=== PATIENT | female | born 1950 | race Caucasian/White ===

== ENCOUNTER → 2016-10-22 | Outpatient (CLI) | payer OTHER ==
[~2016-10-22] VITALS: Ht 152.4 cm; Wt 84.0 kg
[~2016-10-22] MED LIST: AMBEREN PO; AMLO-110 PO; B-CO1CAP3 PO; FERR1TAB23 PO; HYDR25TA4 PO; LEVO50TA PO; LISI20TA3 PO; MECL1TAB42 PO; PANT40TA PO; SULI200T4 PO
[2016-10-22 13:53] VITALS: BP 146/72; PULSE 77; Ht 152.4 cm; Wt 84.0 kg
== END | disposition home or self-care (01) ==
LOC: C.NEUR 13:00
PROVIDERS: ATTEND Internal Medicine Pulmonary Disease
DX: G47.33 Obstructive sleep apnea (adult) (pediatric) (principal); I10 Essential (primary) hypertension

== ENCOUNTER → 2016-11-26 | Outpatient (CLI) | payer OTHER ==
[2016-11-26 12:08] LABS: BASO % 0.7 %; BASO ABS # 0.04 K/uL (0-0.2); COMPLETE YES; EOS % 1.8 %; HEMATOCRIT 42.7 % (37-47); IG% 0.2 %; LYMPH % 41.5 %; LYMPH ABS # 2.53 K/uL (1.2-3.4); MEAN CELL VOLUME 97.7 fL (80-100); MEAN CORPUSCULAR HGB CONC 33.7 g/dl (32-36); MEAN PLATELET VOLUME 10.9 fL (7.4-10.4); NEUT % 47.8 %; PLATELET COUNT 246 K/uL (130-400); RED BLOOD COUNT 4.37 M/uL (4.2-5.4); WHITE BLOOD COUNT 6.09 K/uL (4.8-10.8)
[2016-11-26 12:15] LABS: ALT/SGPT 37 U/L (12-78); AST/SGOT 19 U/L (15-37); BLOOD UREA NITROGEN 20 mg/dl (7-18); BUN/CREATININE RATIO 22.8 (10-20); CALCIUM 9.3 mg/dl (8.5-10.1); CARBON DIOXIDE 27 mmol/L (21-32); CHLORIDE 104 mmol/L (98-107); CREATININE 0.89 mg/dl (0.60-1.20); GLUCOSE 91 mg/dl (70-99); POTASSIUM 3.9 mmol/L (3.5-5.1); SODIUM 140 mmol/L (136-145)
[2016-11-26 12:23] LABS: ALB/GLOB RATIO 1.1 (0.9-2); ALKALINE PHOSPHATASE 95 U/L (45-117); FERRITIN 116.2 ng/ml (8.0-388.0); TOTAL IRON BINDING CAPACITY 317 mcg/dl (250-450)
== END | disposition home or self-care (01) ==
LOC: C.LABBFT 07:55
PROVIDERS: ATTEND Family Medicine
DX: D50.9 Iron deficiency anemia, unspecified (principal); I10 Essential (primary) hypertension; E03.9 Hypothyroidism, unspecified

== ENCOUNTER → 2016-12-10 | Outpatient (CLI) | payer OTHER ==
[~2016-12-10] MED LIST changes: -MECL1TAB42 PO
--- NOTE | 2016-12-11 05:52 | SPLIT NIGHT TECHNICIAN REPORT ---
[facility] Split Night Polysomnogram - Mill Tender Warm Up Report Study date: 12/10/2016 Referring Physician: Elaine Phillips PA-C, PA-C Name: OKLIAMUNA Bullock Mill Tender Warm Up: Leidy Ivy [facility]. Date of : 1950 Height: 66 years, Height 5' 0" Sex: Female Weight: 185 lbs Age: 66 BMI: Medications: 36.13 Amlodipine 5 mg, Iron, Levothyroxine 50 MCG, Lisinopril 20 mg, Protonix 40 mg, Sulindac 200 mg, Vitamin B 12 Patient History 66 yr. old female here for a modified split night sleep study if AHI >6. Patient currently uses CPAP but is still experiencing JONATHAN symptoms. Patient had a PSG done December 2015 that showed an AHI of 3. Parameters Monitored NPSG: E1-M2, E2-M1, Fp1-M2, Fp2-M1, F3-M2, F4-M2, F4-M1, C3-M2, C4-M2, C4-M1, O1-M2, O2-M2, O2-M1, T3-M2, T4-M1, P3-M2, P4-M1, CHIN1, CHIN2, HR, EKG, Legs, PFLOW, SNOR, FLOW, CFLOW, Tidal Volume, THOR, ABDO, SpO2, PLTH, CPRESS, ETCO2 Wave, ETCO2, pH SLEEP SUMMARY DATA DIAGNOSTIC TREATMENT Lights Out: 10:37:28 PM 1:27:58 AM Lights On: 1:24:58 AM 5:32:58 AM Total Recording Time (TRT): 167.5 min. 245.0 min. Total Sleep Time (TST): 121.5 min. 206.5 min. NREM Time: 107.0 min. 164.5 min. REM Time: 14.5 min. 42.0 min. Sleep Period Time (SPT): 164.5 min. 240.0 min. Sleep Efficiency (SE): 73 % 84 % Sleep Latency: 3.0 min. 5.0 min. Arousal Index: 19.3 5.5 PAP Treatment Levels: 4, 5, 6, 7, 8 * Optimal Pressure(s) SLEEP STAGING DATA DIAGNOSTIC TREATMENT Duration (min) TST % Duration (min) TST % Stage Wake: 46.0 min. -- 38.5 min. -- WASO: 43.0 min. -- 33.5 min. -- NREM: 107.0 min. 88 % 164.5 min. 80 % Stage N1: 29.5 min. 24 % 13.5 min. 7 % Stage N2: 52.5 min. 43 % 88.5 min. 43 % Stage N3: 25.0 min. 21 % 62.5 min. 30 % REM: 14.5 min. 12 % 42.0 min. 20 % POSITIONAL DATA Event Count Index Event Count Index Supine: 33 15.8 3 0.8 Supine NREM: 16 8.1 1 0.5 Supine REM: 17 70 2 2 Non-Supine: 0 0.0 5 3.7 Non-Supine NREM: 0 0.0 1 0.0 Non-Supine REM: N/A N/A 4 17.8 AROUSAL SUMMARY DATA: Event Count Index Event Count Index Apnea Arousals: 4 4.9 0 0.0 Hypopnea Arousals: 3 1.5 1 0.3 Snore Arousals: 8 4.0 2 0.6 PLM Arousals: 10 4.9 2 0.6 Non-Specific Arousals: 5 2.5 6 1.7 Total Arousals: 39 19.3 19 5.5 MYOCLONUS (PLM) Event Count Index Event Count Index PLM: 26 12.8 4 1.2 PLM AROUSAL: 10 4.9 2 0.6 PLM W/O AROUSAL 26 12.8 2 0.6 PLM W/RESP EVENT 3 0.0 0 0.0 MYOCLONUS (PLM) Event Count Index Event Count Index LM: 7 13.8 31 9.0 LM AROUSAL: 7 3.5 6 1.7 LM W/O AROUSAL LM W/RESP EVENT LM NON SPECIFIC 27 13.3 25 7.3 HEART RATE DATA DIAGNOSTIC TREATMENT Sleep (bpm): 72 66 REM (bpm): 92 92 NREM (bpm): 93 92 Tachycardia Count: 0 0 Tachycardia Duration: 0.00 0 Bradycardia Count: 0 0 Bradycardia Duration: 0.00 0 DIAGNOSTIC PORTION TREATMENT PORTION RESPIRATORY DATA Event Count Index Event Count Index AHI: -- 15.3 -- 1.7 RDI: -- 16.3 -- 2 Obstructive Apnea: 10 4.9 0 0.0 Central Apnea: 0 0.0 0 0.0 Mixed Apnea: 0 0.0 0 0.0 Hypopnea: 21 10.4 6 1.7 RERA: 2 1.0 2 0.6 Total Apneas: 10 4.9 0 0.0 RESPIRATORY DATA REM NREM SLEEP REM NREM SLEEP Supine Position: Obstructive Apneas: 1 9 10 0 0 0 Central Apneas: 0 0 0 0 0 0 Mixed Apneas: 0 0 0 0 0 0 Hypopneas: 16 5 21 1 1 2 RERA 0 2 2 1 0 1 Total Supine Events: 17 16 33 2 1 3 Supine AHI: 70 8.1 15.8 2 0.5 0.8 Supine RDI: 70.3 9.3 16.8 4.2 0.5 1.3 REM NREM SLEEP REM NREM SLEEP Non-Supine Position: Obstructive Apneas: N/A 0 0 0 0 0 Central Apneas: N/A 0 0 0 0 0 Mixed Apneas: N/A 0 0 0 0 0 Hypopneas: N/A 0 0 4 0 4 RERA N/A 0 0 0 1 1 Total Supine Events: N/A 0 0 4 1 5 Supine AHI: N/A 0.0 0.0 17.8 0.0 3.7 Supine RDI: N/A 0.0 0.0 17.8 1.2 4.7 OXYGEN DESTAURATION DATA: Event Count Index Event Count Index REM Desaturations: 17 70.3 5 7.1 NREM Desaturations: 7 3.9 2 0.7 SNORE DATA DIAGNOSTIC TREATMENT Snore Time: 17.0 1:32:58 AM Snore TST%: 8 11 Snore Arousal Count: 8 2 Snore Arousal Index: 4.0 0.6 Desaturation Event Summary: Minimum %SpO2 Event Count Mean/Min/Max Duration(sec.) Desaturation Index % Time In Bed > 90 37 26.2 / 9.0 / 60.0 6.2 88.9 86 - 90 2 13.1 / 12.8 / 13.5 2.7 11.0 81 - 85 0 N/A 0.0 0.1 76 - 80 0 N/A 0.0 0.0 71 - 75 0 N/A 0.0 0.0 66 - 70 0 N/A 0.0 0.0 61 - 65 0 N/A 0.0 0.0 56 - 60 0 N/A 0.0 0.0 51 - 55 0 N/A 0.0 0.0 < 50 0 N/A 0.0 0.0 OXYGEN SATURATION DATA DIAGNOSTIC TREATMENT SpO2 Mean Sleep: 93 % 92 % SpO2 Mean REM: 92 % 92 % SpO2 Mean NREM: 93 % 92 % SpO2 Minimum Sleep: 82 % 88 % SpO2 Minimum REM: 82 % 88 % SpO2 Minimum NREM: 86 % 88 % Time Below 90% (TST): 4.5 1.7 Time Below 88% (TST): 1.6 0.0 Total REM NREM Awake <50% 0.0 min. 0.0 min. 0.0 min. 0.0 min. 51 - 60% 0.0 min. 0.0 min. 0.0 min. 0.0 min. 61 - 70% 0.0 min. 0.0 min. 0.0 min. 0.0 min. 71 - 80% 0.0 min. 0.0 min. 0.0 min. 0.0 min. 81 - 90% 45.0 min. 7.3 min. 34.6 min. 3.0 min. 91 - 100% 359.1 min. 49.2 min. 236.9 min. 73.1 min. Average 92 92 92 93 Minimum SpO2 81 82 86 81 Desaturation Event Index 5.5 23.4 2.0 5.0 # Desat. Events below 89% 13 10 3 N/A Time(%) with Saturation below 89% 0.6 0.5 0.1 0.0 Time(min.) with Saturation below 89% 2.6 2.1 0.5 0.0 Recording Mill Tender Warm Up Comments: Mrs. Martel slept in the right, left, and supine positions. No cardiac arrhythmia. PLMs noted. No bruxism noted. Snoring was noted and scored as a 4 on a scale of 0 through 5. (0=no snoring, 5=snoring loud enough to be heard through a closed door or down the lee way) At 1:27 am, Mrs. Martel met specific Split-Night criteria during the diagnostic portion of this study. CPAP was initiated at +4 CMH2O room air and up-titrated to an optimal level of + 8 CMH2O No Cflex, which nearly eliminated all respiratory events and snoring. A ResMed P10, was used during titration. Mrs. Martel awoke to use the restroom two during the night. Mrs. Martel stated, I did not sleep as well as I do when I am in my own bed. The final report will be interpreted and signed by a sleep physician. The completed physician report will then be placed in the patient medical record. Therapy Event: Therapy (cm H20) 0 4 5 6 7 8 Total Time at Pressure (min.) 167.5 46.1 58.7 22.9 28.3 88.9 TST at Pressure (min.) 121.5 22.6 47.7 22.9 27.8 85.4 # Periods 1 1 1 1 1 1 Sleep Onset (min.) 3.0 5.0 0.0 0.0 0.0 0.0 REM Onset (min.) 88.0 N/A 28.4 N/A N/A 24.9 Sleep Efficiency % 72 49 81 100 98 96 Wakefulness (%) 27.5 50.9 18.7 0.0 1.8 3.9 Wakefulness (min.) 46.0 23.5 11.0 0.0 0.5 3.5 NREM 1 (%) 17.6 15.2 2.6 2.2 0.0 5.1 NREM 1 (min.) 29.5 7.0 1.5 0.5 0.0 4.5 NREM 2 (%) 31.3 30.3 11.7 97.8 39.6 38.2 NREM 2 (min.) 52.5 14.0 6.9 22.4 11.2 34.0 NREM 3 (%) 14.9 3.5 44.0 0.0 58.6 20.7 NREM 3 (min.) 25.0 1.6 25.9 0.0 16.6 18.4 REM (%) 8.7 0.0 23.0 0.0 0.0 32.0 REM (min.) 14.5 0.0 13.5 0.0 0.0 28.5 # Arousals 39 5 3 4 1 6 Arousal Index 19.3 13.3 3.8 10.5 2.2 4.2 # Snore 662 102 209 121 210 327 Snore Index 326.9 270.4 262.8 316.6 453.4 229.7 AHI 15.3 0.0 5.0 2.6 0.0 0.7 AHI Supine 15.8 N/A 0.0 2.6 0.0 0.7 AHI Non-Supine 0.0 0.0 5.7 N/A N/A N/A NREM AHI 7.9 0.0 0.0 2.6 0.0 0.0 REM AHI 70.3 N/A 17.8 N/A N/A 2.1 RDI 16.3 2.7 5.0 2.6 0.0 1.4 # Obstructive 10 0 0 0 0 0 # Central Ap 0 0 0 0 0 0 # Mixed 0 0 0 0 0 0 # Hypopneas 21 0 4 1 0 1 RERAS 2 1 0 0 0 1 Total Respiratory Events 33 1 4 1 0 2 Time Below SpO2 89.00% (min.) 2.3 0.0 0.1 0.0 0.0 0.2 Mean NREM SpO2 (%) 93 93 92 92 91 91 Mean REM SpO2 (%) 92 N/A 92 N/A N/A 92 Mean Sleep SpO2 (%) 93 93 92 92 91 91 Min NREM SpO2 (%) 86 89 91 90 90 88 Min REM SpO2 (%) 82 N/A 88 N/A N/A 88 Position Supine (min.) 117.8 0.0 5.9 22.9 27.8 85.4 Position Non-supine (min.) 3.7 22.6 41.9 0.0 0.0 0.0 LM Index Sleep 26.7 18.6 11.3 18.3 4.3 7.0 LM Index NREM 24.7 18.6 10.5 18.3 4.3 5.3 LM Index REM 41.4 N/A 13.3 N/A N/A 10.5 Mean Heart Rate (bpm) 72 69 69 63 65 66 Min Heart Rate (bpm) 59 64 57 57 60 59
--- NOTE | 2016-12-13 07:50 | POLYSOMNOGRAPH REPORT ---
DATE OF STUDY: 12/10/2016. REFERRING PHYSICIAN: Dr. Keyshawn Estrada. CLINICAL DATA: The patient is a 66-year-old female with a BMI of 36.13. She has a history of sleep apnea dating back to 2000. She has been wearing CPAP for many years. Her complaints are those of morning headache, snoring with her mask on, and not feeling well rested. The [place] Sleepiness Scale Score is 12. She had a diagnostic PSG on 01/02/2016 that showed an AHI of only 3. She is referred back for a split sleep study. SLEEP ARCHITECTURE: During the diagnostic portion of the study, the sleep period time was 164.5 minutes. The total sleep time was 121.5 minutes. Sleep efficiency was moderately reduced to 73%. Sleep latency was normal at 3.0 minutes. The arousal index was 19.3. Sleep consisted of stage N1 24%, stage N2 43%, stage N3 21%, and stage REM 12%. During the therapeutic portion of the study, the patient was treated with nasal CPAP. The sleep period time was 240.0 minutes. The total sleep time was 206.5 minutes. The sleep efficiency was mildly reduced to 84%. The sleep latency was 5 minutes. The arousal index was 5.5. Sleep consisted of stage N1 7%, stage N2 43%, stage N3 30%, and stage REM 20%. AROUSAL DATA: During the diagnostic portion of the study, the patient had 39 arousals including 4 apnea arousals, 3 hypopnea arousals, 8 snoring arousals, 10 PLM arousals, and 5 nonspecific arousals. The arousal index was 19.3. During the therapeutic portion of the study, the patient had a total of 19 arousals including 1 hypopnea arousal, 2 snoring arousals, 2 PLM arousals, and 6 nonspecific arousals. The arousal index was 5.5. PLM DATA: During the diagnostic portion of the study the patient had a total of 26 periodic limb movements for an index of 12.8. The PLM arousal index was 4.9. During the therapeutic portion of the study the patient had a total of only 4 PLMs for an index of 1.2. EKG: The cardiac rhythm was normal sinus. The cardiac rates ranged from 66 to 93 beats per minute. No arrhythmias were noted. RESPIRATORY DATA: During the diagnostic portion of the study, the patient had a total of 31 respiratory events including 10 obstructive apneas and 21 hypopneas. The 4% desaturation rule was utilized to score hypopneas. The apnea hypopnea index was mildly elevated at 15.3. During the therapeutic portion of the study, she was treated with nasal CPAP. She had a total of 6 respiratory events, all hypopneas. The apnea hypopnea index was only 1.7. At the final pressure of 8 cm, the apnea-hypopnea index was only 0.7. She did have a total of 88.9 minutes at the final pressure of 8 cm. OXIMETRY DATA: During the diagnostic portion of the study. The mean saturation was 93%. The minimum saturation was 82%. There was a total of 1.6 minutes with saturations less than 88%. During the therapeutic portion of the study, the mean saturation was 92%. The minimum saturation was 88%. There were 0 minutes less than 88%. SERVICE DOG TRAINER'S COMMENTS: Mrs. Martel slept in the right, left, and supine positions. No cardiac arrhythmia was noted. PLMs were noted. No bruxism noted. Snoring was noted and scored as a 4 on a scale of 0 through 5. At 1:27 a.m. Mrs. Martel met specific split night criteria during the diagnostic portion of the study. CPAP was initiated at 4 cm of water and titrated up to an optimum level of 8 cm. This resulted in near elimination of all respiratory events and scoring. A ResMed P10 mask was used. IMPRESSION: Obstructive sleep apnea -- resolved with nasal CPAP at 8 cm. COMMENTS AND RECOMMENDATIONS: This study documented that the patient clearly has moderate sleep apnea. This was well treated with a CPAP of 8 cm. She had almost no events at the final pressure. Her oxygenation was improved. The sleep architecture was improved with increase stage N3 and stage REM during the CPAP titration. RECOMMENDATIONS: 1. It is advised that her CPAP be set at 8 cm. 2. During this study, a ResMed P10 mask was utilized. If she needs a new mask this one would be recommended or mask of choice as per patient's preference. 3. The patient should be advised to avoid sleeping in the supine position as there typically is less apnea when supine. 4. A weight reduction program as advised in light of the elevation of body mass index of 36.13. 5. Followup is advised between day 31 and day 90. [facility]
== END | disposition home or self-care (01) ==
LOC: C.NEUR 21:00
PROVIDERS: ATTEND Physician Assistant
DX: G47.33 Obstructive sleep apnea (adult) (pediatric) (principal)

== ENCOUNTER → 2017-01-08 | Outpatient (CLI) | payer OTHER ==
[~2017-01-08] VITALS: Ht 152.4 cm; Wt 83.2 kg
[2017-01-08 16:43] VITALS: BP 130/71; PULSE 86; Ht 152.4 cm; Wt 83.2 kg
== END | disposition home or self-care (01) ==
LOC: C.NEUR 15:12
PROVIDERS: ATTEND Physician Assistant Medical
DX: G47.33 Obstructive sleep apnea (adult) (pediatric) (principal)

== ENCOUNTER → 2017-03-25 | Outpatient (CLI) | payer OTHER ==
--- NOTE | 2017-03-25 12:28 | MAMMOGRAPHY REPORT ---
BILATERAL DIGITAL SCREENING MAMMOGRAM WITH CAD: 03/25/2017 CLINICAL HISTORY: Routine screening. Patient has no complaints. TECHNIQUE: Bilateral CC and MLO views were obtained. Current study was also evaluated with a Compute r Aided Detection (CAD) system. COMPARISON: Comparison is made to exams dated: 03/20/2016 mammogram, 03/16/2014 mammogram, 03/17/2015 ma mmogram, 02/19/2012 mammogram - [facility], 02/03/2009, and 03/06/2004 mammogram - [facility]. BREAST COMPOSITION: There are scattered areas of fibroglandular density in both breasts. FINDINGS: Linear scar markers overlie the upper outer quadrant of each breast. There is stable asymm etry in the right upper outer quadrant, which appears similar dating back to at least 2008, therefore likely benign. There are scattered benign rounded calcifications in the breasts. No new suspicious mass, architectural distortion or cluster of microcalcifications is seen. IMPRESSION: ACR BI-RADS CATEGORY 1: NEGATIVE There is no mammographic evidence of malignancy. A 1 year screening mammogram is recommended. The pa tient will receive written notification of the results. Approximately 10% of breast cancers are not detected with mammography. A negative mammographic report should not delay biopsy if a clinically suggestive mass is present. Christine Shah M.D. ay/:03/25/2017 12:20:40 Senior Hr Business Partner: Shae Wheatley, [facility] letter sent: Normal 1/2 BI-RADS Code: ACR BI-RADS Category 1: Negative
== END | disposition home or self-care (01) ==
LOC: C.MAMM 10:44
PROVIDERS: ATTEND Obstetrics & Gynecology
DX: Z12.31 Encounter for screening mammogram for malignant neoplasm of breast (principal)

== ENCOUNTER → 2017-04-23 | Outpatient (CLI) | payer OTHER ==
[~2017-04-23] VITALS: Ht 152.4 cm; Wt 78.5 kg
[2017-04-23 12:32] VITALS: BP 128/76; PULSE 72; Ht 152.4 cm; Wt 78.5 kg
== END | disposition home or self-care (01) ==
LOC: C.NEUR 12:12
PROVIDERS: ATTEND Physician Assistant Medical
DX: G47.33 Obstructive sleep apnea (adult) (pediatric) (principal); I10 Essential (primary) hypertension

== ENCOUNTER → 2017-06-05 | Outpatient (CLI) | payer OTHER ==
[2017-06-05 12:29] LABS: BASO % 0.8 %; BASO ABS # 0.05 K/uL (0-0.2); COMPLETE YES; EOS % 1.8 %; HEMATOCRIT 41.9 % (37-47); IG% 0.5 %; LYMPH % 34.4 %; LYMPH ABS # 2.29 K/uL (1.2-3.4); MEAN CELL VOLUME 97.4 fL (80-100); MEAN CORPUSCULAR HEMOGLOBIN 32.8 pg (25-34); MEAN CORPUSCULAR HGB CONC 33.7 g/dl (32-36); MEAN PLATELET VOLUME 10.8 fL (7.4-10.4); MONO % 7.5 %; PLATELET COUNT 264 K/uL (130-400); WHITE BLOOD COUNT 6.65 K/uL (4.8-10.8)
[2017-06-05 12:46] LABS: ALT/SGPT 29 U/L (12-78); AST/SGOT 18 U/L (15-37); BLOOD UREA NITROGEN 31 mg/dl (7-18); BUN/CREATININE RATIO 34.7 (10-20); CALCIUM 9.5 mg/dl (8.5-10.1); CARBON DIOXIDE 24 mmol/L (21-32); CHLORIDE 108 mmol/L (98-107); CHOLESTEROL 218 mg/dl (0-200); CREATININE 0.89 mg/dl (0.60-1.20); GLUCOSE 99 mg/dl (70-99); POTASSIUM 4.5 mmol/L (3.5-5.1); SODIUM 141 mmol/L (136-145); TRIGLYCERIDES 167 mg/dl (0-150); VERY LOW DENSITY LIPOPROT CALC 33 mg/dl
[2017-06-05 12:55] LABS: ALB/GLOB RATIO 1.1 (0.9-2); ALKALINE PHOSPHATASE 89 U/L (45-117); CHOLESTEROL/HDL RATIO 4.4; FERRITIN 168.7 ng/ml (8.0-388.0); HDL CHOLESTEROL 50 mg/dl; LDL CHOLESTEROL CALCULATED 135 mg/dl; TOTAL IRON BINDING CAPACITY 284 mcg/dl (250-450)
== END | disposition home or self-care (01) ==
LOC: C.LABBFT 09:35
PROVIDERS: ATTEND Internal Medicine
DX: I10 Essential (primary) hypertension (principal); D50.9 Iron deficiency anemia, unspecified; E78.5 Hyperlipidemia, unspecified; E03.9 Hypothyroidism, unspecified

== ENCOUNTER → 2017-07-10 | Outpatient (CLI) | payer OTHER ==
[2017-07-10 17:13] LABS: BLOOD UREA NITROGEN 18 mg/dl (7-18)
== END | disposition home or self-care (01) ==
LOC: C.LABBFT 13:42
PROVIDERS: ATTEND Physician Assistant
DX: H93.19 Tinnitus, unspecified ear (principal); H90.42 Sensorineural hearing loss, unilateral, left ear, with unrestricted hearing on the contralateral side

== ENCOUNTER → 2017-07-25 | Outpatient (CLI) | payer OTHER | END | disposition home or self-care (01) | LOC: C.MAMM 10:13 | PROVIDERS: ATTEND Internal Medicine | DX: Z00.00 Encounter for general adult medical examination without abnormal findings (principal); Z13.820 Encounter for screening for osteoporosis; M85.88 Other specified disorders of bone density and structure, other site ==

== ENCOUNTER → 2017-10-18 | Outpatient (CLI) | payer OTHER ==
[~2017-10-18] VITALS: Ht 152.4 cm; Wt 73.3 kg
[2017-10-18 12:50] VITALS: BP 136/79; PULSE 83; Ht 152.4 cm; Wt 73.3 kg
== END | disposition home or self-care (01) ==
LOC: C.NEUR 11:55
PROVIDERS: ATTEND Internal Medicine Pulmonary Disease
DX: G47.33 Obstructive sleep apnea (adult) (pediatric) (principal); I10 Essential (primary) hypertension; E78.5 Hyperlipidemia, unspecified; E03.9 Hypothyroidism, unspecified; Z82.49 Family history of ischemic heart disease and other diseases of the circulatory system; Z80.8 Family history of malignant neoplasm of other organs or systems

== ENCOUNTER → 2017-12-17 | Outpatient (CLI) | payer OTHER ==
[2017-12-17 12:43] LABS: HEMATOCRIT 40.7 % (37-47); MEAN CELL VOLUME 98.1 fL (80-100); MEAN CORPUSCULAR HEMOGLOBIN 33.7 pg (25-34); MEAN CORPUSCULAR HGB CONC 34.4 g/dl (32-36); MEAN PLATELET VOLUME 10.9 fL (7.4-10.4); PLATELET COUNT 244 K/uL (130-400); RED CELL DISTRIBUTION WIDTH CV 13.5 % (11.5-14.5); RED CELL DISTRIBUTION WIDTH SD 48.3 fL (36.4-46.3); WHITE BLOOD COUNT 5.23 K/uL (4.8-10.8)
[2017-12-17 12:47] LABS: BASO % 0.8 %; BASO ABS # 0.04 K/uL (0-0.2); EOS % 2.1 %; EOS ABS # 0.11 K/uL (0-0.5); IG# 0.02 K/uL (0.00-0.02); LYMPH % 37.1 %; LYMPH ABS # 1.94 K/uL (1.2-3.4); MONO % 6.1 %; MONO ABS # 0.32 K/uL (0.11-0.59); NEUT % 53.5 %
[2017-12-17 12:55] LABS: BLOOD UREA NITROGEN 26 mg/dl (7-18); CREATININE 0.76 mg/dl (0.60-1.20); GLUCOSE 86 mg/dl (70-99)
[2017-12-17 12:56] LABS: ALBUMIN 3.9 gm/dl (3.4-5.0); ALT/SGPT 26 U/L (12-78); AST/SGOT 17 U/L (15-37); CALCIUM 9.2 mg/dl (8.5-10.1); CARBON DIOXIDE 29 mmol/L (21-32); CHOLESTEROL 209 mg/dl (0-200); POTASSIUM 3.9 mmol/L (3.5-5.1); SODIUM 141 mmol/L (136-145)
[2017-12-17 13:05] LABS: ALKALINE PHOSPHATASE 90 U/L (45-117); LDL CHOLESTEROL CALCULATED 127 mg/dl; TOTAL PROTEIN 7.5 gm/dl (6.4-8.2); TRANSFERRIN 252 mg/dl (200-360)
== END | disposition home or self-care (01) ==
LOC: C.LABBFT 09:15
PROVIDERS: ATTEND Internal Medicine
DX: I10 Essential (primary) hypertension (principal); E78.5 Hyperlipidemia, unspecified; E03.9 Hypothyroidism, unspecified; D50.9 Iron deficiency anemia, unspecified

== ENCOUNTER → 2018-03-27 | Outpatient (CLI) | payer OTHER ==
[~2018-03-27] MED LIST changes: -AMLO-110 PO; +AMLO5TAB3 PO
--- NOTE | 2018-03-27 15:12 | MAMMOGRAPHY REPORT ---
BILATERAL DIGITAL SCREENING MAMMOGRAM TOMOSYNTHESIS WITH CAD: 03/27/2018 CLINICAL HISTORY: Routine screening. Patient has no complaints. TECHNIQUE: The study was acquired using full field digital technology and interpreted from soft copy. Breast tomosynthesis in addition to standard 2D mammography was performed. Current study was also ev aluated with a Computer Aided Detection (CAD) system. COMPARISON: Comparison is made to exams dated: 03/25/2017 mammogram, 03/20/2016 mammogram, 03/17/2015 nish mogram, 03/16/2014 mammogram, and 02/19/2012 mammogram - [facility]. BREAST COMPOSITION: There are scattered areas of fibroglandular density in both breasts. FINDINGS: No suspicious masses, calcifications, or areas of architectural distortion are noted in either breast . There has been no significant interval change compared to prior exams. Bilateral benign-appearing calcifications are not significantly changed. IMPRESSION: ACR BI-RADS CATEGORY 2: BENIGN There is no mammographic evidence of malignancy. A 1 year screening mammogram is recommended.( 019) The patient will receive written notification of the results. Some breast cancers are not detected with mammography. A negative mammographic report should not rajwinder y biopsy if a clinically suggestive mass is present. Ashley Hernandez M.D. ah/:03/27/2018 12:04:24 Slag Expander: RT Lyly(R)(M), [facility] letter sent: Normal 1/2 BI-RADS Code: ACR BI-RADS Category 2: Benign
== END | disposition home or self-care (01) ==
LOC: C.MAMM 10:48
PROVIDERS: ATTEND Obstetrics & Gynecology
DX: Z12.31 Encounter for screening mammogram for malignant neoplasm of breast (principal)

== ENCOUNTER 2018-10-02 04:49 | Inpatient (IN) ==
--- NOTE | 2018-09-05 12:15 | PAT Medication Instructions ---
Medication Instructions Date of Service September 05, 2018 Home Medications amlodipine [Norvasc] 5 mg PO QDD ascorbic acid (vitamin C) [Vitamin 1 g PO QAM calcium phosphate-vitamin D3 1 tab PO DAILY ferrous sulfate [Iron (ferrous 325 mg PO DAILY ketorolac (PF) 1 drp OPHTHALMIC (EYE) DAILY levothyroxine 50 mcg PO QAM lisinopril 20 mg PO BID pantoprazole [Protonix] 40 mg PO QAM sulindac 200 mg PO QAM vitamin B complex 1 cap PO QAM Continue as directed ketorolac (PF) 1 drp OPHTHALMIC (EYE) DAILY ASK your surgeon for instructions sulindac 200 mg PO QAM DO NOT take the morning of surgery ascorbic acid (vitamin C) [Vitamin 1 g PO QAM calcium phosphate-vitamin D3 1 tab PO DAILY ferrous sulfate [Iron (ferrous 325 mg PO DAILY lisinopril 20 mg PO BID vitamin B complex 1 cap PO QAM Take morning of surgery With a small sip of water, OTHERWISE NOTHING TO EAT OR DRINK AFTER MIDNIGHT: levothyroxine 50 mcg PO QAM pantoprazole [Protonix] 40 mg PO QAM Take evening before surgery amlodipine [Norvasc] 5 mg PO QDD lisinopril 20 mg PO BID Other Notes If you have any questions please call us at [phone] or [phone] or [phone] or [phone]
--- NOTE | 2018-09-05 12:49 | Anesthesiology Consultation ---
Date of Service September 05, 2018 Assessment & Plan (1) Encounter for pre-operative examination: Chart Review Chart Review: Acceptable Risk for Surgery and Patient seen in Pre Admission Testing Teaching & Discussion Pre-Anesthesia Teaching/Discussion Notes: Instructed NPO after midnight before surgery,except medications with 15 cc of water. Medication instructions provided according to the PAT guidelines. History Surgery Operation Date: 10/02/18 12:25 Proposed Procedures p Left Reversed Total Shoulder Arthroplasty - London Sanders MD Height/Weight Height: 5 ft Weight: 76.7 kg Allergies Allergy/AdvReac Type Severity Reaction Status Date / Time oxycodone Allergy Unknown HIVES Verified 09/01/18 10:55 Penicillins Allergy Unknown HIVES Verified 09/01/18 10:55 Medications Home Medications Medication Instructions Recorded Confirmed Last Taken amlodipine [Norvasc] 5 mg PO QDD 09/01/18 09/01/18 Unknown ascorbic acid (vitamin C) [Vitamin 1 g PO QAM 09/01/18 09/01/18 Unknown C] calcium phosphate-vitamin D3 1 tab PO DAILY 09/01/18 09/01/18 Unknown [Citracal + D3 (calcium phos)] ferrous sulfate [Iron (ferrous 325 mg PO DAILY 09/01/18 09/01/18 Unknown sulfate)] ketorolac (PF) 1 drp OPHTHALMIC (EYE) DAILY 09/01/18 09/01/18 Unknown levothyroxine 50 mcg PO QAM 09/01/18 09/01/18 Unknown lisinopril 20 mg PO BID 09/01/18 09/01/18 Unknown pantoprazole [Protonix] 40 mg PO QAM 09/01/18 09/01/18 Unknown sulindac 200 mg PO QAM 09/01/18 09/01/18 Unknown vitamin B complex 1 cap PO QAM 09/01/18 09/01/18 Unknown Past Medical History Medical History Acid reflux CONTROLLED Arthritis Chronic back pain HX HERNIATED DISC (LOWER) Hiatal hernia SMALL PER CXR History of blood transfusion S/P 2/2 TRAUMA WITH INSTRUMENTATION DELIVERY History of valvular heart 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, MILD MR , MODERATE TR Hypertension Hypothyroidism Mild pulmonary hypertension Obesity Sleep apnea CPAP Past Family History Family History Mother Family history of uterine cancer Father Family history of skin cancer Past Surgical History Surgical History History of arthroscopy of left shoulder History of arthroscopy of right shoulder History of bilateral cataract extraction History of bunionectomy & HAMMER TOE LEFT History of colonoscopy History of eye surgery RETINA HORSESHOE TEAR WITHOUT DETACHMENT/RIGHT History of hemorrhoidectomy History of hysterectomy History of lumpectomy of both breasts History of total knee arthroplasty LEFT (X3 TOTAL PROCEDURES FOR) RIGHT (X2 TOTAL PROCEDURES FOR) Past Anesthesia History Other Patient states "gagging" with anesthesia extubation x 1 episode many years ago ( patient unsure which surgery this was with/when/where). No issues with all other surgeries per patient. Father with similar "gagging" upon anesthesia emergence. History of PONV No Motion Sickness Screening History of Motion Sickness: No Social History Smoking Status: Former smoker tobacco type: cigarettes Smoking cigarettes per day: QUIT SEVERAL YEARS AGO Do You Dip or Chew Tobacco: No Hx Alcohol Use: Yes alcohol intake frequency: holidays/special occasions only Hx Substance Use: No substance use type: does not use Exercise / Class Metabolic Activity III < 4 Walking/Shop/Light housework Review of Systems Reflux controlled. Patient denies chest pain, shortness of breath, cough, wheezing, palpitations. Physical Exam Vital Signs VITALS BP 134/77 P 74 TEMP 98.1 SP02 100%RA RESP 18 Full neck and c-spine range of motion. Full TMJ range of motion. TMD 3 finger breaths Mallampati Score 2 Dentition: intact, caps on molars Lungs: clear throughout to auscultation Cardiac: regular rate and rhythm, no murmurs noted Spine: normal Carotid arteries: negative bruit Extremities: no edema Testing Electrocardiogram Date: 09/05/18 SR with 1st degree AVB at 66bpm. Chest X-Ray Date: 09/05/18 Findings: + NAD Small hiatal hernia Echocardiogram Date: 10/11/15 LVEF 60%. No RWMA. Basal asymmetric hypertrophy of the elderly. Grade I DD. Moderate calcification of MV annulus restricting posterior MV leaflet. Mild MR. Moderate TR. Mild pulmonary HTN. Laboratory Results 09/05/18 12:56 09/05/18 12:56 Blood Type A Positive 09/05/18 12:56 Antibody Screen NEGATIVE 09/05/18 12:56 PT 10.5 Seconds (9.0-12.0) 09/05/18 12:56 INR 1.0 (0.9-1.1) 09/05/18 12:56 APTT 25.9 Seconds (21.0-31.0) 09/05/18 12:56 Hemoglobin A1c 5.6 % (4.5-5.6) 09/05/18 12:56 Urine Color Yellow 09/05/18 Unknown Urine Appearance Clear (Clear) 09/05/18 Unknown Urine pH 6.0 (4.5-7.5) 09/05/18 Unknown Ur Specific [place] 1.018 (1.000-1.030) 09/05/18 Unknown Urine Protein Negative (Negative) 09/05/18 Unknown Urine Glucose (UA) Negative (Negative) 09/05/18 Unknown Urine Ketones Negative (Negative) 09/05/18 Unknown Urine Nitrite Negative (Negative) 09/05/18 Unknown Ur Leukocyte Esterase Negative (Negative) 09/05/18 Unknown
--- NOTE | 2018-09-05 13:21 | XRay Report ---
XR chest Pre-admission PA/Lat CLINICAL HISTORY: pat preoperative evaluation COMPARISON STUDY: 01/14/2015 FINDINGS: The bones soft tissues and hemidiaphragms are normal. The cardiomediastinal silhouette is n ormal. The lungs are clear. The pulmonary vasculature is normal. IMPRESSION: Negative chest. Small hiatal hernia The above report was generated using voice recognition software. It may contain grammatical, syntax or spelling errors. Electronically signed by: Jorden Gutierrez M.D. 09/05/2018 1:19 PM
[2018-09-05 13:31] LABS: Basophils # (auto) 0.05 K/uL (0-0.2); Basophils % (auto) 1.1 %; Eosinophils # (auto) 0.09 K/uL (0-0.5); Eosinophils % (auto) 2.1 %; Hematocrit (blood only) 39.6 % (37-47); Hemoglobin 13.2 g/dL (12.0-16.0); Immature Granulocytes # (auto) 0.01 K/uL (0.00-0.02); Immature Granulocytes % (auto) 0.2 %; Lymphocytes # (auto) 1.84 K/uL (1.2-3.4); Lymphocytes % (auto) 41.9 %; Mean Corpuscular Hgb Conc 33.3 g/dL (32-36); Mean Platelet Volume 10.7 fL (7.4-10.4); Monocytes # (auto) 0.33 K/uL (0.11-0.59); Monocytes % (auto) 7.5 %; Neutrophils # (auto) 2.07 K/uL (1.4-6.5); Neutrophils % (auto) 47.2 %; Platelet Count 235 K/uL (130-400); RDW Coefficient of Variation 13.3 % (11.5-14.5); White Blood Count 4.39 K/uL (4.8-10.8)
[2018-09-05 13:38] LABS: Appearance Urine Clear (Clear); Bilirubin Urine Negative (Negative); Color Urine Yellow; Glucose Urine UA Negative (Negative); Ketones Urine Negative (Negative); Leukocyte Esterase Urine Negative (Negative); Nitrite Urine Negative (Negative); Protein Urine Negative (Negative); Specific Gravity Urine 1.018 (1.000-1.030); Urobilinogen Urine Negative (Negative)
[2018-09-05 13:55] LABS: Partial Thromboplastin Time 25.9 Seconds (21.0-31.0); Prothrombin Time 10.5 Seconds (9.0-12.0)
[2018-09-05 13:57] LABS: Estimated Average Glucose 114 mg/dl
[2018-09-05 14:12] LABS: Albumin Level 3.6 gm/dl (3.4-5.0); BUN Creatinine Ratio 31.4 (10-20); Calcium 9.2 mg/dl (8.5-10.1); Creatinine Clr Calc Pharmacy 59.3 ml/min; Est GFR (African American) 84.6; Potassium 3.9 mmol/L (3.5-5.1)
--- NOTE | 2018-09-30 12:48 | History and Physical Report ---
DATE OF ADMISSION: 10/02/2018 CHIEF COMPLAINT: Chronic left shoulder pain and weakness. HISTORY OF PRESENT ILLNESS: This is a 68-year-old female patient of Dr. Sanders'jayesh complaining of chronic left shoulder pain and weakness, longstanding, now progressively getting worse. She has failed conservative treatment including arthroscopic surgery in the past. At this point in time, she wishes to proceed with a left shoulder reverse total shoulder arthroplasty. She has been diagnosed with osteoarthritis and rotator cuff arthropathy. PAST MEDICAL HISTORY: Heart murmur, hypertension, history of tuberculosis treated in 1990, sleep apnea with the use of CPAP, peripheral neuropathy, hypothyroidism, history of anemia, osteoarthritis, upper back problems, sciatica, acid reflux, hiatal hernia, obesity. SOCIAL HISTORY: Nonsmoker, occasional drinker. PAST SURGICAL HISTORY: Both rotator cuff surgeries, bilateral knee replacements, bilateral carpal tunnel, left bunion, bilateral cataracts and hemorrhoidectomy. FAMILY HISTORY: Noncontributory. REVIEW OF SYSTEMS: Chronic left shoulder pain and weakness. Otherwise, denies any shortness of breath, chest pain, nausea, vomiting or other joint complaints. MEDICATIONS: Lisinopril 20 mg daily, Norvasc 5 mg daily, Synthroid 75 mcg daily, vitamin C 1000 mg daily, Protonix 40 mg daily, super B Renny complex 0.4 mg daily, Citracal plus D 600 mg/500 mg daily, ketorolac 0.5% eyedrops 1 drop 3 times daily into the affected eyes, Clinoril 200 mg twice daily, Synthroid 50 mcg daily. ALLERGIES: PENICILLIN WHICH CAUSES HIVES AND OXYCODONE WHICH ALSO CAUSES HIVES. PHYSICAL EXAMINATION: GENERAL: Well-developed, well-nourished 68-year-old female in no acute distress. She is alert and oriented x3 and pleasant. HEENT: Normocephalic, atraumatic. Extraocular motions are intact. Pupils are equal, reactive to light. HEART: Regular rate and rhythm, no murmurs appreciated. LUNGS: Clear. ABDOMEN: Soft and nontender with bowel sounds present. LEFT SHOULDER: She has full range of motion actively with pain and crepitation. She has 3/5 strength globally. NEUROLOGIC: Neurovascularly, she is intact in her left upper extremity. DIAGNOSES: Left shoulder rotator cuff arthropathy, failure of conservative treatment. She has a history of a heart murmur, hypertension, sleep apnea with use of CPAP. She has a history of tuberculosis treated in 1990 rule out INH, peripheral neuropathy, hypothyroidism, anemia, osteoarthritis, upper back problems, sciatica, acid reflux, hiatal hernia and obesity. PLAN: The patient was advised of her diagnosis. Indications, risks, benefits, postop course have all been reviewed. The patient wishes to proceed with a left reversed total shoulder arthroplasty. Necessary consent forms, preoperative testing and clearances will be obtained.
[2018-10-02] MEDS ORDERED: dexAMETHasone 4 MG TAB PO SCH (06:00)
[2018-10-02] MEDS ORDERED: LR 15ML/HR IV SCH (06:00)
[2018-10-02] MEDS ORDERED: FAMOTIDINE 20 MG TAB PO SCH (06:00)
[2018-10-02] MEDS ORDERED: GABAPENTIN 300 MG PO SCH (06:00)
[2018-10-02] MEDS ORDERED: CeleBREX 200 MG CAP PO SCH (06:00)
[2018-10-02] MEDS ORDERED: METOCLOPRAMIDE HCL 10 MG TABLET PO SCH (06:00)
[2018-10-02] MEDS ORDERED: VANCOMYCIN HCL IV SCH (06:00)
[2018-10-02] MEDS ORDERED: SODIUM CHLORIDE 0.9% IV SCH (06:00)
[2018-10-02] MEDS ORDERED: ACETAMINOPHEN 500 MG TAB PO SCH (06:00)
[2018-10-02] MEDS ORDERED: ROPIVACAINE 0.5% 5 MG/ML 30 ML VIAL ONE (06:15)
[2018-10-02] MEDS ORDERED: GLYCOPYRROLATE 0.2 MG/ML VIAL ONE (06:49)
[2018-10-02] MEDS ORDERED: DEXAMETHASONE SOD INJ 4 MG/ML VIAL ONE (06:49)
[2018-10-02] MEDS ORDERED: PROPOFOL IV EMULSION 10 MG/ML 20 ML VIAL IV ONE (06:49)
[2018-10-02] MEDS ORDERED: SUCCINYLCHOLINE CHLORIDE 20 MG/ML 10 ML VIAL ONE (06:49)
[2018-10-02] MEDS ORDERED: ONDANSETRON INJ 2 MG/ML 2 ML VIAL ONE (06:49)
[2018-10-02] MEDS ORDERED: LIDOCAINE HCL 2% 2 ML VIAL/AMP(20MG/ML) INFIL ONE (06:49)
[2018-10-02] MEDS ORDERED: PHENYLEPHRINE HCL 10 MG/ML VIAL ONE (06:49)
[2018-10-02] MEDS ORDERED: NEOSTIGMINE METHYLSULFATE 5 MG/5 ML SYR ONE (06:49)
[2018-10-02] MEDS ORDERED: ePHEDrine sulfate 50 MG/ML AMP ONE (06:49)
[2018-10-02] MEDS ORDERED: MIDAZOLAM HCL 1 MG/ML 2ML VIAL ONE (06:50)
[2018-10-02] MEDS ORDERED: fentaNYL citrate 100 MCG/2 ML VIAL ONE (06:50)
[2018-10-02] MEDS ORDERED: BACITRACIN INJ 50,000 UNIT VIAL ONE (06:56)
--- NOTE | 2018-10-02 07:22 | History & Physical Bridge Note ---
Date of Service October 02, 2018 History & Physical Bridge Note I have examined the patient, reviewed the History & Physical and in the interval since the performance of the History & Physical I have noted the following changes of clinical significance: no changes noted
[2018-10-02] MEDS ORDERED: LABETALOL HCL IV 5 MG/ML 20ML IV PRN (07:47)
[2018-10-02] MEDS ORDERED: ONDANSETRON INJ 2 MG/ML 2 ML VIAL IV PRN ×2 (07:47→12:21)
[2018-10-02] MEDS ORDERED: HYDROmorphone INJ 1 MG/ML SYRINGE IV PRN (07:47)
[2018-10-02] MEDS ORDERED: ATROPINE SULFATE 0.1 MG/ML 10ML SYR IV PRN (07:47)
[2018-10-02] MEDS ORDERED: KETOROLAC 30 MG/ML VIAL IV PRN (07:47)
[2018-10-02] MEDS ORDERED: ROCURONIUM BROMIDE 10 MG/ML 5 ML VIAL ONE (08:38)
--- NOTE | 2018-10-02 10:14 | Post Operative Brief Note ---
Immediate Post Op Note v1 Date of Surgery October 02, 2018 Pre & Post Diagnosis Operation Date: 10/02/18 07:15 Pre-Op Diagnosis: Left Shoulder Rotator Cuff Arthropathy, failed rotator cuff repair, end-stage glenohumeral osteoarthritis Post-Op Diagnosis: Left Shoulder Rotator Cuff Arthropathy, failed rotator cuff repair, end-stage glenohumeral osteoarthritis, chronic biceps tendinopathy Procedure Operation Date: 10/02/18 07:15 Actual Procedures p Left Reversed Total Shoulder Arthroplasty, removal hardware (suture anchors), biceps tenodesis (Left) - London Sanders MD Surgeon London Sanders MD Yard Worker Jorden GARZA Estimated Blood Loss 125 Findings Consistent with Post-Op Diagnosis Specimens Humeral head Drains Hemovac Drain Anesthesia Type General Regional Complications none Disposition Accompanied Patient To Recovery: No Disposition: Recovery Room Overlapping Procedure I was immediately available: during the entire case.
--- NOTE | 2018-10-02 10:54 | XRay Report ---
XR shoulder LT min 2V routine CLINICAL HISTORY: Post shoulder surgery COMPARISON: 02/16/2009 DISCUSSION: There are postsurgical changes of a reverse total left shoulder arthroplasty. There are o verlying skin marleen and surgical drains present. There is no dislocation. There are no acute fractu res. IMPRESSION: Postsurgical changes of a reverse total left shoulder arthroplasty. Electronically signed by: Franklin Noel M.D. 10/02/2018 10:53 AM
--- NOTE | 2018-10-02 11:48 | Anesthesiology Progress Note ---
Date of Service October 02, 2018 Anesthesia Post Procedure Vital Signs Vital Signs: Temp Pulse Pulse Pulse Resp BP BP 10/02/18 11:31 79 20 117/67 10/02/18 11:30 81 18 10/02/18 11:25 81 24 10/02/18 11:20 79 15 10/02/18 11:16 77 18 109/63 10/02/18 11:15 78 20 10/02/18 11:10 84 15 10/02/18 11:06 78 22 102/59 L 10/02/18 11:05 80 22 10/02/18 11:02 81 21 10/02/18 11:01 36.2 C L 83 20 95/66 L 10/02/18 11:00 87 22 10/02/18 10:56 85 16 105/63 10/02/18 10:55 86 24 10/02/18 10:51 87 20 112/65 10/02/18 10:50 84 22 10/02/18 10:47 85 18 10/02/18 10:46 84 20 97/59 L 10/02/18 10:45 85 28 H 10/02/18 10:41 89 22 99/65 L 10/02/18 10:40 87 19 10/02/18 10:36 85 24 104/63 10/02/18 10:35 87 18 10/02/18 10:31 90 18 104/67 10/02/18 10:30 92 H 18 10/02/18 10:26 91 H 19 108/70 10/02/18 10:25 90 21 10/02/18 10:22 36.2 C L 95 H 89 32 H 118/76 118/76 10/02/18 05:44 36.8 C 73 20 147/82 H Pulse Ox 10/02/18 11:31 96 10/02/18 11:30 96 10/02/18 11:25 97 10/02/18 11:20 98 10/02/18 11:16 96 10/02/18 11:15 96 10/02/18 11:10 98 10/02/18 11:06 95 10/02/18 11:05 95 10/02/18 11:02 95 10/02/18 11:01 93 10/02/18 11:00 96 10/02/18 10:56 95 10/02/18 10:55 96 10/02/18 10:51 96 10/02/18 10:50 95 10/02/18 10:47 95 10/02/18 10:46 94 10/02/18 10:45 92 10/02/18 10:41 94 10/02/18 10:40 98 10/02/18 10:36 97 10/02/18 10:35 97 10/02/18 10:31 96 10/02/18 10:30 97 10/02/18 10:26 97 10/02/18 10:25 96 10/02/18 10:22 96 10/02/18 05:44 98 Pain Intensity Left Shoulder: Pain Intensity: 0 Notes Mental Status: alert / awake / arousable Patient Amnestic to Procedure: Yes Nausea / Vomiting: adequately controlled Pain: adequately controlled Airway Patency, RR, SpO2: stable & adequate BP & HR: stable & adequate Hydration State: stable & adequate Anesthetic Complications: no major complications apparent
[2018-10-02] MEDS ORDERED: ACETAMINOPHEN SOL 650 MG/20.3 ML UDC PO PRN (12:21)
[2018-10-02] MEDS ORDERED: TRAMADOL HCL 50 MG TABLET PO PRN (12:21)
[2018-10-02] MEDS ORDERED: MoRPHine SULFATE 4 MG/ML 1 ML CARP\\VIAL IV PRN (12:21)
[2018-10-02] MEDS ORDERED: VANCOMYCIN CONSULT ACTIVE PRN (12:21)
[2018-10-02] MEDS ORDERED: SODIUM CHLORIDE 0.9% 1000ML 1,000 ML IV SCH (12:21)
[2018-10-02] MEDS ORDERED: NALOXONE HCL 0.4 MG/1 ML VIAL/CARP IV PRN (12:21)
[2018-10-02] MEDS ORDERED: BISACODYL 10 MG SUPP PR PRN (12:21)
[2018-10-02] MEDS ORDERED: MAGNESIUM HYDROXIDE SUSP 30 ML UDC PO PRN (12:21)
[2018-10-02] MEDS ORDERED: METOCLOPRAMIDE HCL INJ 5 MG/ML 2 ML VIAL IV PRN (12:21)
--- NOTE | 2018-10-02 14:14 | Hospitalist Consultation ---
Date of Consultation October 02, 2018 Assessment & Plan (1) Osteoarthritis: - S/p left reversal total shoulder arthroplasty today, doing well post op. - Pain control per primary team. - Aspirin 81 mg PO BID for DVT ppx. - Bowel regimen: Colace 100 mg BID with prn medications. - Monitor CBC qAM to evaluate for blood loss; continue Ferrous sulfate 325 mg daily. - Holding home arthritis medications. (2) Hypertension: - Continue Amlodipine 5 mg daily as prescribed. - Hold Lisinopril 20 mg BID; will restart pending renal function in AM. - Has been normotensive. (3) Hypothyroidism: - Continue Synthroid 75 mcg PO daily. - Most recent documented TSH was 5.6 in Jun 2018; will repeat level in AM. (4) Chronic diastolic heart failure: - TTE in 2016 showed EF 60%, basal asymmetry hypertrophy of the elderly, grade I diastolic dysfunction. - Monitor I/Os and daily weights. - Holding home ACEI as noted above. (5) Valvular heart disease: - Echo in 2016 showed moderate calcification of MV annulus restricting posterior MV leaflet, mild MR, moderate TR. (6) Mild pulmonary hypertension: - Echo in 2016 showed mild pulm HTN. (7) Obstructive sleep apnea: - Continue home CPAP - confirmed with pt. that machine was brought from home. (8) GERD (gastroesophageal reflux disease): - Protonix 40 mg daily. (9) Obesity: - BMI 33.8. - Encourage weight loss and exercise. (10) DVT prophylaxis: - Aspirin 81 mg BID. Dispo: Will continue to follow, please call with any questions. Supervising Physician Co-Signing Physician Notes PA Supervision Note: I personally saw and examined the patient. I verified all handley points and agree with KAYLA Allen with the following exceptions and/or additions: Patient doing very well postoperatively, pain is controlled. Denies headache or lightheadedness, denies nausea or vomiting, denies abdominal pain. Denies chest pain or shortness of breath. History reviewed as above Vitals reviewed Gen: AAOx3, NAD HEENT: Anicteric sclerae, EOMI CV: RRR no mgr nl S1S2 Pulm: CTAB no wcr Abd: +BS soft NT ND no masses or hernias Ext: No edema, 2+ DP pulses, left upper extremity in sling with ice pack and dressing in place over the shoulder Skin: No rashes, warm/dry 68-year female with history as above, here status post total reverse shoulder arthroplasty. Doing very well postoperatively -Plan as above Hospitalist service will follow along History of Present Illness Reason for Consultation: Medical Management Attending Physician: London Sanders MD History of Present Illness Mrs. Martel is a 68 year old female with past medical history of HTN, arthritis, GERD, valvular heart disease, hypothyroidism, obstructive sleep apnea, obesity and pulmonary HTN who presented for a planned left reversed total shoulder arthroplasty. She is doing well post procedure, denies significant pain. Denies chest pain, SOB, LE edema, N/V. Is urinating frequently, 2-3 times since procedure. Last BM was this morning. Pt. lives with her , plan for discharge to home when clinically stable following PT/OT evaluation. Allergies Allergy/AdvReac Type Severity Reaction Status Date / Time oxycodone Allergy Unknown HIVES Verified 09/01/18 10:55 Penicillins Allergy Unknown HIVES Verified 09/01/18 10:55 Home Medications Home Medications Medication Instructions Recorded Confirmed Type amlodipine [Norvasc] 5 mg PO QDD 09/01/18 10/02/18 History ascorbic acid (vitamin C) [Vitamin 1 g PO QAM 09/01/18 10/02/18 History C] calcium phosphate-vitamin D3 1 tab PO DAILY 09/01/18 10/02/18 History [Citracal + D3 (calcium phos)] ferrous sulfate [Iron (ferrous 325 mg PO DAILY 09/01/18 10/02/18 History sulfate)] ketorolac (PF) 1 drp OPHTHALMIC (EYE) DAILY 09/01/18 10/02/18 History lisinopril 20 mg PO BID 09/01/18 10/02/18 History pantoprazole [Protonix] 40 mg PO QAM 09/01/18 10/02/18 History sulindac 200 mg PO QAM 09/01/18 10/02/18 History vitamin B complex 1 cap PO QAM 09/01/18 10/02/18 History levothyroxine 75 mcg PO QAM 09/30/18 10/02/18 History Patient History Medical History Acid reflux CONTROLLED Arthritis Chronic back pain HX HERNIATED DISC (LOWER) Hiatal hernia SMALL PER CXR History of blood transfusion S/P 2/2 TRAUMA WITH INSTRUMENTATION DELIVERY History of valvular heart 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, MILD MR , MODERATE TR Hypertension Hypothyroidism Mild pulmonary hypertension Obesity Sleep apnea CPAP Surgical History History of arthroscopy of left shoulder History of arthroscopy of right shoulder History of bilateral cataract extraction History of bunionectomy & HAMMER TOE LEFT History of colonoscopy History of eye surgery RETINA HORSESHOE TEAR WITHOUT DETACHMENT/RIGHT History of hemorrhoidectomy History of hysterectomy History of lumpectomy of both breasts History of total knee arthroplasty LEFT (X3 TOTAL PROCEDURES FOR) RIGHT (X2 TOTAL PROCEDURES FOR) Family History Mother Family history of uterine cancer Father Family history of skin cancer Social History Current Living Situation: Spouse Other Information That Helps Us Care for You: No Feels Safe at Home: Yes Smoking Status: Former smoker Tobacco Type: cigarettes Cigarettes per Day: QUIT SEVERAL YEARS AGO Do You Dip or Chew Tobacco: No Hx Alcohol Use: Yes Alcohol type: hard liquor Alcohol Intake Frequency: holidays/special occasions only Hx Substance Use: No Beliefs That Will Affect Care: None Preferred Language: Mongolian Communication Ability: Effective Outdoor Adventure Guides Required: No Review of Systems 12 point R.O.S. negative unless specified above in HPI. Constitutional: no fever, no chills and no weakness Respiratory: no cough and no dyspnea Cardiovascular: no chest pain, no palpitations and no edema Gastrointestinal: no abdominal pain, no nausea, no vomiting, no constipation and no diarrhea/loose stools Genitourinary (Female): + urinary frequency; no dysuria and no difficulty urinating Musculoskeletal: no joint pain and no myalgia Integumentary: no rash Physical Exam 2 Vital Signs (Past 24 Hours): Last Vital Signs Temp 36.4 C L 10/02/18 12:39 Pulse 94 H 10/02/18 12:39 Resp 19 10/02/18 12:39 BP 103/69 10/02/18 12:39 Pulse Ox 95 10/02/18 12:39 Physical Exam: General: Resting comfortably in no apparent distress, accompanied by family at bedside. HEENT: NC/AT; PERRLA with EOMI; [place] conjunctiva, MMM. No erythema of posterior pharynx Neck: Supple and nontender Cardiac: RRR w/o murmurs, gallops or rubs Lungs: CTA bilaterally; No rhonchi, wheezing, or rales Abdomen: Bowel normoactive X 4; Nontender to palpation Extremities: Warm. Left arm with sling in place, +drain. Mild edema noted in left hand. Neuro: No focal weakness Skin: No rash _ (1) Hypothyroidism Hypothyroidism type: acquired Qualified Code(s): E03.9 - Hypothyroidism, unspecified (2) Osteoarthritis Osteoarthritis location: shoulder Osteoarthritis type: primary Laterality: left Qualified Code(s): M19.012 - Primary osteoarthritis, left shoulder (3) Hypertension Hypertension type: essential hypertension Qualified Code(s): I10 - Essential (primary) hypertension
--- NOTE | 2018-10-02 15:40 | Operative Report ---
Post Operative Report Pre & Post Diagnosis Operation Date: 10/02/18 07:15 Pre-Op Diagnosis: Left Shoulder Rotator Cuff Arthropathy, failed rotator cuff repair Post-Op Diagnosis: Left Shoulder Rotator Cuff Arthropathy, failed rotator cuff repair, retained suture anchors status post rotator cuff repair, biceps tendinopathy. Procedure Operation Date: 10/02/18 07:15 Actual Procedures p Left Reversed Total Shoulder Arthroplasty, biceps tenodesis, removal hardware (suture anchor and suture )(Left) - London Sanders MD Surgeon London Sanders MD Chemistry Associate Jorden GARZA Estimated Blood Loss 125 Findings Consistent with Post-Op Diagnosis Specimens Humeral head Drains 2 Hemovac Anesthesia Type General Regional Complications none Disposition Accompanied Patient To Recovery: No Disposition: Recovery Room Indications 68-year-old female with chronic bilateral shoulder pain left greater than right. She has limited function weakness chronic pain radiographs demonstrating she is [id number] kerry humeral joint is proximal migration of the humerus with [id number] articulation between humerus and the acromion consistent with chronic rotator cuff tear. Patient had previous rotator cuff surgery and failed rotator cuff repair. Description of Procedure The patient was taken to the operating room and anesthetized under regional block and general anesthetic. The patient was positioned on the operating table in a 30� beachchair position with a towel roll under the medial border of the left scapula. The arm was draped free to be able to manipulate the shoulder as needed. The left upper extremity was prepped and draped in usual sterile fashion. Exam demonstrated [id number] crepitation and obese arm range of motion 150 degrees forward elevation 90 degrees abduction 50 degrees external rotation. An anterior deltopectoral approach was performed. A longitudinal incision was made in the deltopectoral interval. The skin was incised sharply. Subcutaneous flaps were elevated off the fascia. There were no cephalic veins. the clavipectoral fascia was divided at the lateral margin of the conjoined tendon and extended up to the CA ligament. The following findings were noted there is scarred bursal tissue overlying the subscapularis which was thin and had tendinopathy. There is a chronic infraspinous tendon tear with retraction there is still some supraspinatus tendon tissue which had tendinopathy. There was a teres minor tendon still intact. There is [id number] in the glenohumeral joint there were inferior osteophytes on the humeral head. The upper centimeter of the pectoralis was released for inferior exposure. The biceps tendon findings demonstrated tendinopathy throughout the bicipital groove and proximally there was a widened markedly degenerated biceps tendon extending into the superior labrum with marked degeneration. Some of this biceps tendon within the joint had already ruptured away from the biceps tendon which was scarred up in the groove. the biceps tendon was tenodesed to the pectoralis tendon with #2 FiberWire. The proximal biceps tissue was resected. The subscapularis tendon was taken down off the lesser tuberosity using a subperiosteal dissection. A #1 Vicryl traction suture was placed into the free end of the subscapularis tendon and capsule. The subscapular muscle fibers were split longitudinally at the level of the circumflex vessels. The circumflex vessels were identified and tied off with silk ties and divided laterally. A Kitner elevator was used to free up the inferior fibers of the subscapularis off of the capsule. The axillary nerve was identified with a tug test and protected with a blunt Bandar retractor between the nerve and the capsule. The subscapularis tendon was then taken down off of the lesser tuberosity subperiosteally and subperiosteal dissection was performed along the neck of the humerus as the arm is gradually actually rotated exposing the humeral head. Retractors were readjusted and the inferior osteophytes were all resected using an artist chisel. A Munguia elevator was used to assist in releasing the capsule of the neck of the humerus. The capsule was divided with Go scissors down to the glenoid released off the anterior glenoid and the rotator interval was released to meet the capsular release and a 360� release of the subscapularis was accomplished. A Fukuda retractor was placed into the joint retracting the humeral head posterior. Glenoid findings demonstrated complete exposed bone no particular cartilage and degenerative labrum. The labrum and biceps tendon was resected. an anterior-inferior and posterior inferior capsular release were performed with electrocautery and a Munguia elevator on bone with the axillary nerve protected inferiorly by the retractor. Attention was then taken to the humeral preparation. The cutting guide was placed into the humeral head. It was positioned at 20� of retroversion. Oscillating saw was used to resect the humeral head giving the cut above the level of the posterior rotator cuff insertion site. The humerus was then prepared for the stem. [facility]. After the canal reamer was used I had to remove the suture anchors which were peek anchors and suture material from the greater tuberosity area. The sizing broaches were used followed by trial broaches up to a size 2B long ascend flex trial stem which had the appropriate fit and fill. The appropriate sized cut protector was placed. The humerus was then retracted posterior to the glenoid. The glenoid was sized for a 25 baseplate. The guide for the baseplate was positioned in a 10� inferior tilt and the central drill hole was made. The reamer for the 25 baseplate was used. The central drill was widened for the peg. The 25 baseplate was impacted into position. The base plate was transfixed with superior and inferior locking screws and anterior and posterior compression screws with stable fixation. The fan reamer was used for the 36 millimeter glenoid sphere. After irrigation the 36 outer diameter 25 inner diameter standard glenoid sphere was impacted onto the baseplate and the screw was tightened. Attention was taken back to the humerus. The cut protector was removed and the +0 high offset humeral tray trial was assembled to the trial stem rotated appropriately to get bony coverage and then screwed in position. A trial reduction was performed. A +6 trial insert demonstrated good stability and no shuck. The trials were removed. 3 drill holes are made into the harder bone in the bicipital groove area and 3 #5 FiberWire sutures were placed transosseously. The canal was irrigated with antibiotic solution with bacitracin. The final component was assembled. The final component was ascend to be long humeral stem assembled to the +0 high offset humeral tray with a 36+ 6 humeral polyethylene insert. This was then impacted into the humerus with a tight press-fit. It was reduced to the glenoid sphere. Stability was verified. Subscapularis was repaired with the #5 FiberWire sutures using Scooby- Clifford suture technique. Lateral row soft tissue repair was performed with #2 FiberWire oorrrq-[id number] sutures. The pectoralis was repaired with #2 FiberWire dyqkmk-ie-npmol sutures reinforcing the biceps tendon tenodesis. The arm was taken through a range of motion which demonstrated excellent stability through full range of motion. No tension on repair through 130 degrees forward elevation 90 degrees abduction X rotation to 45 degrees. The implant was stable through the range of motion tested. The wound was copiously irrigated. 2 Hemovac drains were placed. The deltopectoral interval was closed with figure -of-eight #1 Vicryl sutures. The subcutaneous tissues were closed with 2-0 Vicryl sutures. The skin was closed with marleen. Sterile dressings were applied and a shoulder immobilizer. Jorden GARZA my physician assistant chief train dispatcher assisted in the procedure to the entire procedure including patient positioning arm positioning prepping and draping soft tissue retraction instrument management suture management and performed the subcutaneous and skin closure and will participate in the postoperative care of the patient. I attest to the content of the Intraoperative Record and any orders documented therein. Any exceptions are noted below.
[2018-10-02] MEDS: AMLODIPINE BESYLATE 5 MG TAB PO SCH (17:10)
[2018-10-02] MEDS ORDERED: VANCOMYCIN HCL 1,250 MG in SODIUM CHLORIDE 0.9% 250 ML IV SCH (20:00)
[2018-10-02] MEDS: LISINOPRIL 20 MG TAB PO SCH (21:05)
[2018-10-02] MEDS: ASPIRIN 81 MG ECTAB PO SCH (21:05)
[2018-10-02] MEDS: SENNA 8.6 MG TAB PO SCH (21:05)
[2018-10-02] MEDS: DOCUSATE SODIUM 100 MG CAP PO SCH (21:05)
[2018-10-03] MEDS: HYDROCODONE/ACETAMOPHEN 5/325MG TAB PO PRN ×4 (00:48→20:01)
[2018-10-03] MEDS: LEVOTHYROXINE SODIUM 75 MCG TABLET PO SCH (05:42)
[2018-10-03 06:58] LABS: Basophils # (auto) 0.01 K/uL (0-0.2); Basophils % (auto) 0.1 %; Hematocrit (blood only) 34.9 % (37-47); Hemoglobin 11.8 g/dL (12.0-16.0); Immature Granulocytes # (auto) 0.05 K/uL (0.00-0.02); Immature Granulocytes % (auto) 0.4 %; Lymphocytes # (auto) 1.19 K/uL (1.2-3.4); Lymphocytes % (auto) 8.9 %; Mean Corpuscular Hgb Conc 33.8 g/dL (32-36); Mean Corpuscular Volume 98.9 fL (80-100); Mean Platelet Volume 10.3 fL (7.4-10.4); Monocytes # (auto) 0.82 K/uL (0.11-0.59); Monocytes % (auto) 6.2 %; Neutrophils # (auto) 11.26 K/uL (1.4-6.5); Neutrophils % (auto) 84.4 %; Platelet Count 238 K/uL (130-400); RDW Coefficient of Variation 13.4 % (11.5-14.5); RDW Standard Deviation 48.2 fL (36.4-46.3); Red Blood Count 3.53 M/uL (4.2-5.4); White Blood Count 13.33 K/uL (4.8-10.8)
[2018-10-03 07:35] LABS: BUN Creatinine Ratio 23.4 (10-20); Calcium 8.9 mg/dl (8.5-10.1); Creatinine Clr Calc Pharmacy 52.4 ml/min; Est GFR (African American) 71.7; Est GFR (Non-African American) 61.9; Magnesium 2.1 mg/dl (1.8-2.4); Potassium 3.9 mmol/L (3.5-5.1)
--- NOTE | 2018-10-03 08:26 | Orthopedic Progress Note ---
Date of Service October 03, 2018 Assessment & Plan (1) Rotator cuff arthropathy of left shoulder: POD #1, Left shoulder reversed TSA, biceps tenodesis. Limited PT/ OT DVT proph- ASA D/C planning- Home Saturday No formal PT needed, only home exercises as taught in hospital. Subjective POD #1, doing well, Denies SOB, CP, N/V, pain controlled well. Physical Exam 2 Vital Signs (Past 24 Hours): Last Vital Signs Temp 36.4 C L 10/03/18 07:09 Pulse 94 H 10/03/18 07:09 Resp 16 10/03/18 07:09 BP 129/83 10/03/18 07:09 Pulse Ox 96 10/03/18 07:09 Physical Exam: Left shoulder dressings c/d/i, sling in tact, fingers mobile, A &Ox3.
[2018-10-03] MEDS: KETOROLAC 0.5% OP SOLN 5 ML BTL OP SCH (09:33)
[2018-10-03] MEDS: PANTOprazole 40 MG TAB PO SCH (09:34)
[2018-10-03] MEDS: MULTIVITAMIN TAB PO SCH (09:34)
[2018-10-03] MEDS: DOCUSATE SODIUM 100 MG CAP PO SCH ×2 (09:34→20:55)
[2018-10-03] MEDS: FERROUS SULFATE 325 MG TAB PO SCH (09:35)
[2018-10-03] MEDS: ASCORBIC ACID 500 MG TAB PO SCH (09:35)
[2018-10-03] MEDS: LISINOPRIL 20 MG TAB PO SCH ×2 (09:35→20:01)
[2018-10-03] MEDS: VITAMIN B COMPLEX TAB PO SCH (09:35)
[2018-10-03] MEDS: CALCIUM CITRATE 950 MG TAB PO SCH (09:35)
[2018-10-03] MEDS: ASPIRIN 81 MG ECTAB PO SCH ×2 (09:36→20:01)
--- NOTE | 2018-10-03 10:04 | Anesthesiology Progress Note ---
Date of Service October 03, 2018 Anesthesia Post Procedure Vital Signs Vital Signs: Temp Pulse Pulse Pulse Pulse Resp BP 10/03/18 07:09 36.4 C L 94 H 16 10/03/18 05:49 10/03/18 03:51 37.1 C 90 18 10/02/18 22:58 36.9 C 96 H 18 10/02/18 19:43 36.8 C 87 16 10/02/18 15:05 36.5 C 92 H 16 10/02/18 14:05 36.3 C L 90 16 10/02/18 13:45 94 H 18 10/02/18 12:39 36.4 C L 94 H 19 10/02/18 12:05 36.5 C 82 20 10/02/18 11:55 80 16 10/02/18 11:50 80 16 10/02/18 11:46 80 21 112/71 10/02/18 11:45 89 18 10/02/18 11:40 78 13 10/02/18 11:35 81 17 10/02/18 11:32 77 17 10/02/18 11:31 79 20 117/67 10/02/18 11:30 81 18 10/02/18 11:25 81 24 10/02/18 11:20 79 15 10/02/18 11:16 77 18 109/63 10/02/18 11:15 78 20 10/02/18 11:10 84 15 10/02/18 11:06 78 22 102/59 L 10/02/18 11:05 80 22 10/02/18 11:02 81 21 10/02/18 11:01 36.2 C L 83 20 95/66 L 10/02/18 11:00 87 22 10/02/18 10:56 85 16 105/63 10/02/18 10:55 86 24 10/02/18 10:51 87 20 112/65 10/02/18 10:50 84 22 10/02/18 10:47 85 18 10/02/18 10:46 84 20 97/59 L 10/02/18 10:45 85 28 H 10/02/18 10:41 89 22 99/65 L 10/02/18 10:40 87 19 10/02/18 10:36 85 24 104/63 10/02/18 10:35 87 18 10/02/18 10:31 90 18 104/67 10/02/18 10:30 92 H 18 10/02/18 10:26 91 H 19 108/70 10/02/18 10:25 90 21 10/02/18 10:22 36.2 C L 95 H 89 32 H 118/76 BP Pulse Ox 10/03/18 07:09 129/83 96 10/03/18 05:49 97 10/03/18 03:51 144/82 H 90 10/02/18 22:58 109/69 94 10/02/18 19:43 113/71 94 10/02/18 15:05 111/72 96 10/02/18 14:05 119/76 95 10/02/18 13:45 115/73 96 10/02/18 12:39 103/69 95 10/02/18 12:05 109/70 95 10/02/18 11:55 98 10/02/18 11:50 98 10/02/18 11:46 97 10/02/18 11:45 98 10/02/18 11:40 98 10/02/18 11:35 97 10/02/18 11:32 97 10/02/18 11:31 96 10/02/18 11:30 96 10/02/18 11:25 97 10/02/18 11:20 98 10/02/18 11:16 96 10/02/18 11:15 96 10/02/18 11:10 98 10/02/18 11:06 95 10/02/18 11:05 95 10/02/18 11:02 95 10/02/18 11:01 93 10/02/18 11:00 96 10/02/18 10:56 95 10/02/18 10:55 96 10/02/18 10:51 96 10/02/18 10:50 95 10/02/18 10:47 95 10/02/18 10:46 94 10/02/18 10:45 92 10/02/18 10:41 94 10/02/18 10:40 98 10/02/18 10:36 97 10/02/18 10:35 97 10/02/18 10:31 96 10/02/18 10:30 97 10/02/18 10:26 97 10/02/18 10:25 96 10/02/18 10:22 118/76 96 Pain Intensity Left Shoulder: Pain Intensity: 5 Notes Mental Status: alert / awake / arousable Patient Amnestic to Procedure: Yes Nausea / Vomiting: adequately controlled Pain: improving with treatment BP & HR: stable & adequate Hydration State: stable & adequate Neuraxial Anesthesia: see Notes below (pts interscalene block resolved) Anesthetic Complications: no major complications apparent
--- NOTE | 2018-10-03 17:34 | Hospitalist Progress Note ---
Date of Service October 03, 2018 Assessment & Plan (1) Osteoarthritis: - S/p left reversal total shoulder arthroplasty on 10/02, POD#1. - Pain control per primary team. - Aspirin 81 mg PO BID for DVT ppx. - Bowel regimen. - Monitor CBC qAM to evaluate for blood loss; continue Ferrous sulfate 325 mg daily. - Holding home arthritis medications. (2) Hypertension: - Continue Amlodipine 5 mg daily; resumed Lisinopril 20 mg BID as renal function stable post operatively. - BP has been well controlled. (3) Hypothyroidism: - Continue Synthroid 75 mcg PO daily. - TSH level was 0.593. (4) Chronic diastolic heart failure: - TTE in 2016 showed EF 60%, basal asymmetry hypertrophy of the elderly, grade I diastolic dysfunction. - Monitor I/Os and daily weights. - Resumed home ACEI. (5) Valvular heart disease: - Echo in 2016 showed moderate calcification of MV annulus restricting posterior MV leaflet, mild MR, moderate TR. (6) Mild pulmonary hypertension: - Echo in 2016 showed mild pulm HTN. (7) Obstructive sleep apnea: - Continue home CPAP - brought machine from home. (8) GERD (gastroesophageal reflux disease): - Protonix 40 mg daily. (9) Anemia: - Hemoglobin dropped to 11.8, likely related to acute blood loss vs. IV fluids. - Will repeat CBC in AM. (10) Obesity: - BMI 33.8. - Encourage weight loss and exercise. (11) DVT prophylaxis: - Aspirin 81 mg BID. Dispo: Pt. is medically stable, will sign off. Supervising Physician Co-Signing Physician Notes PA Supervision Note: I did not personally see or examine the patient today, but I verified all handley points of KAYLA Allen's assessment and plan with the following exceptions/ additions: None Subjective Pt. is doing well overall. Has pain in left shoulder, rated as a 4/10. Denies chest pain, SOB. Last BM was yesterday morning. Is urinating without difficulty. Review of Systems All systems reviewed & are unremarkable except as noted in HPI & below Constitutional: no fever, no chills and no weakness Respiratory: no cough and no dyspnea Cardiovascular: no chest pain, no palpitations and no edema Gastrointestinal: no abdominal pain, no nausea and no constipation Genitourinary (Female): no difficulty urinating Musculoskeletal: + joint pain Allergy / Immunological: no rash Physical Exam 2 Vital Signs (Past 24 Hours): Last Vital Signs Temp 36.7 C 10/03/18 15:08 Pulse 84 10/03/18 15:08 Resp 19 10/03/18 15:08 BP 126/71 10/03/18 15:08 Pulse Ox 98 10/03/18 15:08 Physical Exam: General: Resting comfortably in no apparent distress. HEENT: NC/AT; PERRLA with EOMI; [place] conjunctiva, MMM. No erythema of posterior pharynx Neck: Supple and nontender Cardiac: RRR Lungs: CTA bilaterally Abdomen: Bowel normoactive X 4; Nontender to palpation Extremities: Warm. Left arm with sling in place, +drain. Neuro: No focal weakness Skin: No rash Results & Data Laboratory Results 10/03/18 10/03/18 Range/Units 06:24 06:24 WBC 13.33 H (4.8-10.8) K/uL RBC 3.53 L (4.2-5.4) M/uL Hgb 11.8 L (12.0-16.0) g/dL Hct 34.9 L (37-47) % MCV 98.9 (80-100) fL MCH 33.4 (25-34) pg MCHC 33.8 (32-36) g/dL RDW Std Deviation 48.2 H (36.4-46.3) fL RDW Coeff of [place] 13.4 (11.5-14.5) % Plt Count 238 (130-400) K/uL MPV 10.3 (7.4-10.4) fL Immature Gran % (Auto) 0.4 % Neut % (Auto) 84.4 % Lymph % (Auto) 8.9 % [place] % (Auto) 6.2 % Eos % (Auto) 0.0 % Baso % (Auto) 0.1 % Immature Gran # (Auto) 0.05 H (0.00-0.02) K/uL Neut # (Auto) 11.26 H (1.4-6.5) K/uL Lymph # (Auto) 1.19 L (1.2-3.4) K/uL [place] # (Auto) 0.82 H (0.11-0.59) K/uL Eos # (Auto) 0.00 (0-0.5) K/uL Baso # (Auto) 0.01 (0-0.2) K/uL Sodium 139 (136-145) mmol/L Potassium 3.9 (3.5-5.1) mmol/L Chloride 107 (98-107) mmol/L Carbon Dioxide 25 (21-32) mmol/L Anion Gap 7.0 (3-11) BUN 22 H (7-18) mg/dl Creatinine 0.94 (0.6-1.2) mg/dl Est Cr Clr Drug Dosing 52.4 ml/min Est GFR ( Amer) 71.7 Est GFR (Non-Af Amer) 61.9 BUN/Creatinine Ratio 23.4 H (10-20) Glucose 127 H (70-99) mg/dl Calcium 8.9 (8.5-10.1) mg/dl Magnesium 2.1 (1.8-2.4) mg/dl TSH 0.593 (0.300-4.500) uIu/ml _ (1) Hypothyroidism Hypothyroidism type: acquired Qualified Code(s): E03.9 - Hypothyroidism, unspecified (2) Osteoarthritis Laterality: left Osteoarthritis location: shoulder Osteoarthritis type: primary Spinal osteoarthritis complication: Spinal region: Qualified Code(s ): M19.012 - Primary osteoarthritis, left shoulder (3) Hypertension Hypertension type: essential hypertension Qualified Code(s): I10 - Essential (primary) hypertension
[2018-10-03] MEDS: AMLODIPINE BESYLATE 5 MG TAB PO SCH (17:51)
[2018-10-03] MEDS: SENNA 8.6 MG TAB PO SCH (20:55)
[2018-10-04] MEDS: HYDROCODONE/ACETAMOPHEN 5/325MG TAB PO PRN ×2 (00:38→12:00)
[2018-10-04] MEDS: LEVOTHYROXINE SODIUM 75 MCG TABLET PO SCH (05:48)
[2018-10-04 07:06] LABS: Basophils # (auto) 0.04 K/uL (0-0.2); Basophils % (auto) 0.3 %; Eosinophils # (auto) 0.02 K/uL (0-0.5); Eosinophils % (auto) 0.2 %; Hemoglobin 11.9 g/dL (12.0-16.0); Immature Granulocytes # (auto) 0.04 K/uL (0.00-0.02); Immature Granulocytes % (auto) 0.3 %; Lymphocytes # (auto) 3.79 K/uL (1.2-3.4); Lymphocytes % (auto) 28.9 %; Mean Corpuscular Volume 99.4 fL (80-100); Mean Platelet Volume 10.3 fL (7.4-10.4); Monocytes % (auto) 8.4 %; Neutrophils # (auto) 8.14 K/uL (1.4-6.5); Neutrophils % (auto) 61.9 %; Platelet Count 239 K/uL (130-400); RDW Coefficient of Variation 13.6 % (11.5-14.5); RDW Standard Deviation 49.7 fL (36.4-46.3); Red Blood Count 3.52 M/uL (4.2-5.4); White Blood Count 13.13 K/uL (4.8-10.8)
[2018-10-04 07:37] LABS: BUN Creatinine Ratio 20.4 (10-20); Calcium 8.6 mg/dl (8.5-10.1); Creatinine Clr Calc Pharmacy 63.9 ml/min; Est GFR (African American) 91.3; Est GFR (Non-African American) 78.8; Potassium 3.5 mmol/L (3.5-5.1)
[2018-10-04] MEDS: VITAMIN B COMPLEX TAB PO SCH (07:55)
[2018-10-04] MEDS: MULTIVITAMIN TAB PO SCH (07:55)
[2018-10-04] MEDS: DOCUSATE SODIUM 100 MG CAP PO SCH (07:55)
[2018-10-04] MEDS: FERROUS SULFATE 325 MG TAB PO SCH (07:55)
[2018-10-04] MEDS: ASCORBIC ACID 500 MG TAB PO SCH (07:55)
[2018-10-04] MEDS: PANTOprazole 40 MG TAB PO SCH (07:55)
[2018-10-04] MEDS: LISINOPRIL 20 MG TAB PO SCH (07:55)
[2018-10-04] MEDS: ASPIRIN 81 MG ECTAB PO SCH (07:56)
[2018-10-04] MEDS: KETOROLAC 0.5% OP SOLN 5 ML BTL OP SCH (07:56)
[2018-10-04] MEDS: CALCIUM CITRATE 950 MG TAB PO SCH (07:56)
--- NOTE | 2018-10-04 08:57 | Orthopedic Progress Note ---
Date of Service October 04, 2018 Assessment & Plan (1) Rotator cuff arthropathy of left shoulder: 68 yo female stable POD #2 s/p left reverse TSA 1. Med management 2. DVT prophylaxis- ASA, SCDs 3. PT/OT 4. D/C planning- home today Subjective Pt was walking halls, pain controlled, denies complaints, ready for discharge Physical Exam 2 Vital Signs (Past 24 Hours): Last Vital Signs Temp 37.0 C 10/04/18 06:48 Pulse 90 10/04/18 06:48 Resp 20 10/04/18 06:48 BP 131/72 10/04/18 06:48 Pulse Ox 96 10/04/18 06:48 Physical Exam: Incision C/D/I, fingers mobile, NVI
--- NOTE | 2018-10-06 08:54 | Discharge Summary ---
Date of Service October 20, 2018 Discharge Data Consultations 09/29/18 12:45 Consult Hospitalist Routine Procedures Performed Operation Date: 10/02/18 07:15 Actual Procedures p Left Reversed Total Shoulder Arthroplasty(Left) - London Sanders MD
--- NOTE | 2018-10-18 23:22 | Discharge Summary ---
CHIEF COMPLAINT: Chronic left shoulder pain and weakness. HISTORY OF PRESENT ILLNESS: This 68-year-old female patient of Dr. Sanders'jayesh complaining of chronic left shoulder pain and weakness. She has failed conservative treatment and diagnosed with rotator cuff arthropathy. PAST MEDICAL HISTORY: Heart murmur; hypertension; tuberculosis, which was treated in 1990; sleep apnea; peripheral neuropathy; hypothyroidism, anemia; osteoarthritis; upper back problems; sciatica; acid reflux; hiatal hernia; and obesity. POSTOPERATIVE COURSE: The patient underwent a left reverse total shoulder arthroplasty, biceps tenodesis on 10/02/2018. She was followed closely with medical consultation, DVT prophylaxis in the form of aspirin, physical therapy, and pain control. There were no events postoperatively. She did well and was discharged home on postoperative day #2. PHYSICAL EXAMINATION: On discharge, left shoulder incision was clean, dry, and intact. Constantin are intact. Skin edges approximated well. There was no redness or drainage. Fingers were mobile. Sling was intact. Neurologically and neurovascularly, she was intact in the left upper extremity. DIAGNOSES: Status post left reverse total shoulder arthroplasty and biceps tenodesis. She also has a history of heart murmur, hypertension, tuberculosis treated in 1990, sleep apnea, peripheral neuropathy, hypothyroidism, anemia, osteoarthritis, upper back problems, sciatica, acid reflux, hiatal hernia, and obesity. PLAN: The patient was discharged home with home exercises only. No formal physical therapy. These have been taught to her in the hospital before discharge. She will continue her preadmission medications with the addition of aspirin for DVT prophylaxis and pain medication. The patient will follow up as scheduled as an outpatient.
== END 2018-10-04 12:45 | disposition home or self-care (01) | DRG 483 ==
LOC: ASU 04:49 → 3W 10:28
DX: E03.9 Hypothyroidism, unspecified; Z87.891 Personal history of nicotine dependence; Z88.0 Allergy status to penicillin; E66.9 Obesity, unspecified; Z86.11 Personal history of tuberculosis; K44.9 Diaphragmatic hernia without obstruction or gangrene; Z86.2 Personal history of diseases of the blood and blood-forming organs and certain disorders involving the immune mechanism; Z96.653 Presence of artificial knee joint, bilateral; I11.0 Hypertensive heart disease with heart failure; Z79.1 Long term (current) use of non-steroidal anti-inflammatories (NSAID); Z68.33 Body mass index [BMI] 33.0-33.9, adult; Z99.89 Dependence on other enabling machines and devices; I08.1 Rheumatic disorders of both mitral and tricuspid valves; M75.22 Bicipital tendinitis, left shoulder; G47.33 Obstructive sleep apnea (adult) (pediatric); Z98.890 Other specified postprocedural states; K21.9 Gastro-esophageal reflux disease without esophagitis; I50.32 Chronic diastolic (congestive) heart failure; M75.102 Unspecified rotator cuff tear or rupture of left shoulder, not specified as traumatic; M19.012 Primary osteoarthritis, left shoulder; Z88.5 Allergy status to narcotic agent; Z79.899 Other long term (current) drug therapy